=== PATIENT | male | born 1945 | race Caucasian/White ===

== ENCOUNTER 2016-10-28 09:48 | Day surgery (SDC) | payer MEDICARE ==
--- NOTE | 2016-10-03 09:02 | HP ---
DATE OF ADMISSION: 10/28/2016 PREOPERATIVE DIAGNOSIS: Right inguinal hernia. HISTORY OF PRESENT ILLNESS: The patient is a 70-year-old male with a history of right groin discomfort. He has had this bulge in the right groin for about a year and a half now. 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 Particularly has discomfort with leaning over. No nausea or vomiting. No change in bowel habits. He was last seen regarding this hernia last February. Since that time, the pain has become more severe. PAST MEDICAL HISTORY: Hypertension, coronary artery disease, [place], previous lower extremity crush injury. PAST SURGICAL HISTORY: Lap bry, right eye, right leg fasciotomy, cardiac cath with stent, right hand. MEDICATIONS: Hydrochlorothiazide, Ambien, Tenormin, Lipitor, TriCor, Ramipril, aspirin. ALLERGIES: None. PHYSICAL EXAMINATION: GENERAL: Well-developed, well-nourished male in no distress. HEENT: Normocephalic. Sclerae anicteric. Trachea is midline. CHEST: No deformities. ABDOMEN: Soft, nontender, nondistended. Reducible right inguinal hernia noted. No palpable left inguinal hernia. Both testes normal. IMPRESSION: A 70-year-old male with reducible right inguinal hernia. PLAN: Will proceed with operative repair laparoscopically using the da Stef robot for assistance. The risks of bleeding, infection and visceral injury, chronic pain, recurrence and numbness were discussed. The patient understands and wishes to proceed. It was discussed with the patient that there would be a Osullivan present for this procedure on this date.
[2016-10-24 13:22] VITALS: BMI 24.3
[~2016-10-28 09:48] MED LIST: DEXAMETHASONE SOD PHOSPHATE 10 MG/ML 1 ML VIAL IV ONE; HEPARIN SODIUM,PORCINE 5,000 UNIT/ML 1 ML VIAL SQ ONE; HYDROmorphone 1 MG/ML 1 ML SYRINGE IVP PRN; LACTATED RINGERS 1,000 ML IV ONE; LIDOCAINE 1% 20 ML VIAL (10MG/ML) FOR IV START INTRADERMA PRN; ONDANSETRON 4 MG/2 ML VIAL IVP ONE; ceFAZolin 2 GM in SODIUM CHLORIDE 0.9% 100 ML IVPB ONE
[2016-10-28] MEDS: MIDAZOLAM 2 MG/2 ML VIAL IVP ONE ×2 (11:10→11:40)
[2016-10-28] MEDS ORDERED: ePHEDrine 50 MG/ML 1 ML AMP ONE (12:28)
[2016-10-28] MEDS ORDERED: PROPOFOL 10 MG/ML 20 ML VIAL IV ONE (12:28)
[2016-10-28] MEDS ORDERED: fentaNYL (PF) 50 MCG/ML 2 ML AMP ONE (12:28)
[2016-10-28] MEDS ORDERED: SUCCINYLCHOLINE CHLORIDE 100 MG/5 ML SYR IV ONE (12:28)
[2016-10-28] MEDS ORDERED: MIDAZOLAM 2 MG/2 ML VIAL ONE (12:28)
[2016-10-28] MEDS ORDERED: GLYCOPYRROLATE 0.2 MG/ML 2 ML VIAL ONE (12:28)
[2016-10-28] MEDS ORDERED: LIDOCAINE 1% INJ 10MG/ML (20 ML MDV) ONE (12:28)
[2016-10-28] MEDS ORDERED: NEOSTIGMINE 1 MG/ML 10 ML VIAL ONE (12:28)
[2016-10-28] MEDS ORDERED: HYDROmorphone (PF) 1 MG/ML ONE (12:28)
[2016-10-28] MEDS ORDERED: ROCURONIUM BROMIDE 10 MG/ML 10 ML VIAL IV ONE (12:28)
[2016-10-28] MEDS ORDERED: BUPIVACAIN-EPI 0.25%-1:200,000 30 ML VIAL SQ ONE (12:57)
[2016-10-28] MEDS ORDERED: LACTATED RINGERS 1,000 ML IV ONE (14:24)
[2016-10-28] MEDS ORDERED: HYDROcodone/APAP 5-325MG 1 EACH TAB PO PRN (14:37)
[2016-10-28] MEDS ORDERED: NALOXONE 0.4 MG/ML 1 ML VIAL IV PRN (14:37)
--- NOTE | 2016-10-28 14:49 | P.PCN ---
Date of Procedure: 10/28/16 Procedure(s) Performed: PREOPERATIVE DIAGNOSIS: Right inguinal hernia POSTOPERATIVE DIAGNOSIS: Right direct inguinal hernia PROCEDURE: Laparoscopic repair right inguinal hernia with the da Stef robot assistance SURGEON: Fly EBL: Minimal ANESTHESIA: General COMPLICATIONS: None OPERATIVE PROCEDURE: Patient was placed in the operating table in the supine position. A Cowart catheter was placed. He was then placed in lithotomy. The abdomen was prepped and draped in usual sterile fashion. A small curvilinear supraumbilical incision was made. The fascia was retracted anteriorly with Bryan forceps. The Veress needle was inserted. The saline drop test was normal. Insufflation took place to 15 mmHg. A 5 mm trocar was then inserted. 2 additional 8 mm trochars were placed in the right upper quadrant and left upper quadrant under visualization. The initial 5 was switched to a 12 mm trocar at that time under direct visualization. The robotic arms were then brought in and docked into place. The fenestrated bipolar was used in the left arm and the laparoscopic greg was utilized in the right arm. A 30 12 mm scope was used in the up position. The peritoneal cavity was inspected. No left internal hernia was seen. The patient did have available adhesions across the midline and right lower quadrant that was divided using sharp dissection and cautery. Next actually served as our incision site on the peritoneum. Following that careful dissection of the preperitoneal space took place. This took place using both electrocautery and sharp dissection and primarily blunt dissection. The patient's hernia was a direct hernia. Hernia sac was dissected away from the hole within Hesselbach's triangle. The pubic tubercle was identified. Phillip's ligament was dissected. Following the dissection took place laterally. There was no evidence of a indirect hernia. The peritoneum was dissected all the way off of the spermatic cord structures. A small lipoma was identified and reduced. Once we had adequate space the 15 x 10 progrip mesh was advanced into the preperitoneal space and flattened out appropriately to cover all potential hernia sites. No sutures were used. The peritoneal defect was then closed using a locking 2-0 Vicryl stranstrattafix suture. The pneumoperitoneum was then evacuated. The fascia at the 12 mm site was closed using a [id number] 0 Vicryl stitch. The skin of all 3 sites was closed using a 4-0 Monocryl stitch. Steri-Strips and sterile dressings were applied. DISPOSITION: Stable to recovery room
[2016-10-28 15:01] VITALS: TEMP 96.7
[2016-10-28 16:49] VITALS: RESP 18
[2016-10-28] MEDS ORDERED: HYDROcodone/APAP 7.5-325MG 1 EACH TAB PO ONE (17:11)
[2016-10-28 17:46] VITALS: BP 141/86; PULSE 63
== END 2016-10-28 17:56 | disposition home or self-care (01) ==
LOC: OR 09:48
PROVIDERS: ATTEND Surgery
DX: K40.90 Unilateral inguinal hernia, without obstruction or gangrene, not specified as recurrent (principal); D17.6 Benign lipomatous neoplasm of spermatic cord; I10 Essential (primary) hypertension; I25.10 Atherosclerotic heart disease of native coronary artery without angina pectoris; E78.5 Hyperlipidemia, unspecified; I25.2 Old myocardial infarction; Z95.5 Presence of coronary angioplasty implant and graft; Z79.82 Long term (current) use of aspirin; Z79.899 Other long term (current) drug therapy
CPT/HCPCS: 49650; C1781; J2250; J1644; J1100; J2710; J0690; J2405; J2001; J3010; J1170; J0330; J2704

== ENCOUNTER → 2017-02-10 | Outpatient (CLI) | payer MEDICARE ==
--- NOTE | 2017-02-10 08:39 | CT ---
EXAMINATION TYPE: CT lumbar spine wo con DATE OF EXAM: 02/10/2017 7:59 AM COMPARISON: CTA aorta July 18, 2011 HISTORY: Patient having back pain that makes his legs and feet numb CT DLP: 652.3 mGycm Automated exposure control for dose reduction was used. FINDINGS: There are 5 lumbar-type vertebra redemonstrated. There is a transitional L6 vertebra are noted. Lumba r spine redemonstrated satisfactory alignment without evidence of acute fracture or dislocation. Ther e is redemonstration of moderate disc space narrowing with vacuum disc phenomenon and moderate spurri ng at L5 L6 level. Posterior spur disc complex is seen at this level on sagittal images. There are ad ditional posterior disc herniations noted at L3-L4 and L4-L5 level on sagittal image 25 effacing ante rior thecal sac. There is mild multilevel anterior and lateral spurring redemonstrated. Review of axial images shows T11-T12 to appear within normal limits. Axial images at T12-L1 level show mild facet degenerative changes bilaterally on axial image 16, bila teral neural foramina are patent. Spinal canal is preserved. Axial images at L1-L2 level show mild to moderate facet degenerative changes with some effacement of right posterior lateral thecal sac on axial image 26. There is mild broad disc bulge effacing anterio r thecal sac at this level. Bilateral neural foramina remain patent. Axial images at the L2-L3 level show mild facet degenerative changes bilaterally. There is mild broad disc bulge mildly effacing anterior thecal sac on axial image 37. Bilateral neural foramina remain p atent. Axial images at L3-L4 level show moderate facet degenerative changes and ligamentum flavum hypertroph y effacing posterior lateral thecal sac. There is mild to moderate broad disc bulge effacing anterior thecal sac and creating mild spinal canal stenosis on axial image 48. This is more prominent than pr ior study. There is mild bilateral anterior inferior neural foraminal narrowing at this level identif ied. Axial images at L4-L5 level show moderate broad-based posterior disc protrusion effacing anterior the lucía sac. There is mild to moderate facet degenerative changes and ligament flavum hypertrophy effacin g posterior lateral thecal sac on axial image 60. This is more prominent than prior exam. There is mi ld bilateral anterior inferior neural foraminal narrowing at this level identified. Axial images at L5-L6 level show moderate facet degenerative changes bilaterally. There is broad-base d posterior disc protrusion with posterior marginal spurring. There is some effacement of the anterio r thecal sac. There is moderate left greater than right neural foraminal narrowing at this level iden tified. Findings are more prominent than prior study. Axial images at the L6-S1 level show facet arthropathy. Spinal canal is preserved and bilateral neura l foramina are patent. There is fairly moderate to severe calcified atherosclerotic change of the aorta extending into [facility] h vessels redemonstrated. Some ectasia is present near axial image 58. No greater than 3 cm intimal c hanges seen. There is been interval cholecystectomy with cholecystectomy clips now visualized. There is new 1.4 cm low dense exophytic lesion medially in the left kidney upper to mid pole level on axial image 34 suspected simple cyst. Mild emphysematous change is felt present in visualized lung bases. Occasional diverticula are seen in visualized portion of the colon. There is partial visualization of normal-appearing appendix in the anterior right upper pelvis. IMPRESSION: Multilevel degenerative changes in the lumbar spine as detailed above with most prominent findings at L3-L4 through the L5-L6 levels, most prominent spinal canal effacement or mild stenosis is seen L3-L4 level. Progression in findings from 2011 MRI is noted.
== END | disposition home or self-care (01) ==
LOC: RADCTMAIN 07:37
PROVIDERS: ATTEND Physical Medicine & Rehabilitation
DX: M47.816 Spondylosis without myelopathy or radiculopathy, lumbar region (principal); G62.9 Polyneuropathy, unspecified; Z98.890 Other specified postprocedural states
CPT/HCPCS: 72131

== ENCOUNTER → 2017-03-11 | Outpatient (CLI) | payer MEDICARE ==
--- NOTE | 2017-03-11 09:58 | US ---
EXAMINATION TYPE: US kidneys/renal and bladder DATE OF EXAM: 03/11/2017 COMPARISON: CT 02/10/2017 CLINICAL HISTORY: N28.9 Kidney lesion. EXAM MEASUREMENTS: Right Kidney: 12.0 x 5.4 x 5.6 cm Left Kidney: 11.6 x 5.3 x 4.8 cm Right Kidney: No hydronephrosis or masses seen Left Kidney: cyst upper/lateral measuring 1.4 x 1.4 x 1.5 cm. This appears exophytic and simple. Thi s corresponds to the finding on 02/10/2017 CT lumbar spine Bladder: wnl Bilateral Jets seen: Yes IMPRESSION: 1. Simple appearing cyst left upper pole kidney
== END | disposition home or self-care (01) ==
LOC: RADUSWWP 09:05
PROVIDERS: ATTEND Family Medicine
DX: N28.1 Cyst of kidney, acquired (principal)
CPT/HCPCS: 76770

== ENCOUNTER 2017-04-26 22:11 | Emergency (ER) | payer MEDICARE ==
--- NOTE | 2017-04-26 22:36 | ED ---
General Adult HPI - General Chief complaint: Abdominal Pain Stated complaint: Abdominal Pain Time Seen by Provider: 04/26/17 22:13 Source: patient, RN notes reviewed, old records reviewed Mode of arrival: EMS Limitations: physical limitation - History of Present Illness Initial comments: Chief complaint and history of present illness this is a 71-year-old male reports that he had a discomfort more like a gassy feeling in the suprapubic region below the umbilicus. States he feels a may have become overanxious had an anxiety attack on top of that. He does have a history of spinal stenosis with occasional paresthesias to his feet. He does report that yesterday and today worked extremely hard and fell asleep on the sofa. Thinks it may be spinal stenosis related though at this time he is symptom-free. - Related Data Home Medications Medication Instructions Recorded Confirmed Aspirin [Adult Low Dose Aspirin EC] 81 mg PO DAILY 10/24/16 10/24/16 Atenolol [Tenormin] 25 mg PO HS 10/24/16 10/24/16 Atorvastatin [Lipitor] 40 mg PO HS 10/24/16 10/24/16 Hydrochlorothiazide [Hydrodiuril] 12.5 mg PO DAILY 10/24/16 10/24/16 Ramipril 10 mg PO DAILY 10/24/16 10/24/16 Zolpidem [Ambien] 10 mg PO HS 10/24/16 10/24/16 oxyCODONE HCL [Roxicodone] 7.5 mg PO Q4HR PRN 10/24/16 10/24/16 Previous Rx's Medication Instructions Recorded Hydrocodone/Acetaminophen [[place] 1 tab PO Q4HR PRN #30 tab 10/28/16 7.5-325] Allergies Allergy/AdvReac Type Severity Reaction Status Date / Time dust Allergy Unknown Uncoded 04/26/17 22:26 Review of Systems ROS Statement: Those systems with pertinent positive or pertinent negative responses have been documented in the HPI. Review of systems no headache chest pain shortness of breath or GI or problems at this time. He reports having had a bowel movement and felt gassy but otherwise is back to normal distal time. He was anxious and when EMS picked him up they stated that he was shaky. Patient states he was having an anxiety attack. All systems reviewed Past medical problems significant for several MIs years ago. He takes aspirin. Also history of hypertension. Surgeries include gallbladder and right inguinal herniorrhaphy repair with mesh. Family history no cancer denies any ALLERGIES quit smoking 32 years ago. Denies alcohol use ROS Other: All systems not noted in ROS Statement are negative. Past Medical History Past Medical History: Coronary Artery Disease (CAD), Hyperlipidemia, Hypertension, Myocardial Infarction ([place]) Additional Past Medical History / Comment(s): hx migraines, [place] x3 Last Myocardial Infarction Date:: 1993 History of Any Multi-Drug Resistant Organisms: None Reported Past Surgical History: Cholecystectomy, Heart Catheterization, Hernia Repair, Orthopedic Surgery Additional Past Surgical History / Comment(s): rt hand surgery-tip of index finger, angioplasty, rt leg surgery(leg injury), rt eye cataract/lens implant, R inguinal surgery. Past Anesthesia/Blood Transfusion Reactions: No Reported Reaction Past Psychological History: No Psychological Hx Reported Smoking Status: Former smoker Past Alcohol Use History: None Reported Past Drug Use History: None Reported - Past Family History Mother Family Medical History: No Reported History General Exam - General Exam Comments Initial Comments: General: The patient is awake and alert, in no distress, and does not appear acutely ill. Currently free of any complaints. Though at home reports she had a funny sensation to the suprapubic region. He then states he thinks he may have had a panic attack.vital signs temp 98.9 pulse 55 respiratory rate 16 pulse ox 95% room air blood pressure 162/76 Eye: Pupils are equal, round and reactive to light, extra-ocular movements are intact ; there is normal conjunctiva bilaterally. No signs of icterus. Evidence of cataract surgery noted. Ears, nose, mouth and throat: There are moist mucous membranes and no oral lesions. Neck: The neck is supple, there is no tenderness . Cardiovascular: There is a regular rate and rhythm. No murmur, rub or gallop is appreciated. Respiratory: Lungs are clear to auscultation, respirations are non-labored, breath sounds are equal. No wheezes, stridor, rales, or rhonchi. Gastrointestinal: Soft, non-distended, non-tender abdomen without masses or organomegaly noted. There is no rebound or guarding present. No CVA tenderness. Bowel sounds are unremarkable. Back: There is no tenderness to palpation in the midline. There is no obvious deformity. No rashes noted. Musculoskeletal: Normal ROM, no tenderness, There is no pedal edema. There is no calf tenderness or swelling. Sensation intact. Pulses equal bilaterally 2+. Neurological: No neuro deficits Skin is warm and dry and no rashes or lesions are noted. Psychiatric: Patient states he's had one previous panic attack in his life. He states this feels similar to what it happened way back then. Limitations: physical limitation Course Vital Signs 04/26/17 04/26/17 22:14 23:26 Temperature 97.4 F L 98.9 F Pulse Rate 68 55 L Respiratory 18 16 Rate Blood Pressure 174/79 162/76 O2 Sat by Pulse 97 95 Oximetry Medical Decision Making - Medical Decision Making medical decision making; patient'swhite count 7 hemoglobin 14 hematocrit of 43, potassium 4.0 with a BUN of 24 creatinine 0.8 GFR greater than 60. Glucose 181. Amylase lipase within normal limits. Urine clean no signs of infection. X-ray of the abdomen was done and reviewed by radiologist, his impression is nonobstructive nonspecific abdomen. As read by Dr. Estrada - Lab Data Result diagrams: 04/26/17 22:30 04/26/17 22:30 Lab Results 04/26/17 04/26/17 04/26/17 Range/Units 22:30 22:30 22:30 WBC 7.0 (3.8-10.6) k/uL RBC 4.73 (4.30-5.90) m/uL Hgb 14.6 (13.0-17.5) gm/dL Hct 43.1 (39.0-53.0) % MCV 91.1 (80.0-100.0) fL MCH 30.9 (25.0-35.0) pg MCHC 33.9 (31.0-37.0) g/dL RDW 12.9 (11.5-15.5) % Plt Count 250 (150-450) k/uL Neutrophils % 58 % Lymphocytes % 27 % Monocytes % 7 % Eosinophils % 4 % Basophils % 1 % Neutrophils # 4.0 (1.3-7.7) k/uL Lymphocytes # 1.9 (1.0-4.8) k/uL Monocytes # 0.5 (0-1.0) k/uL Eosinophils # 0.3 (0-0.7) k/uL Basophils # 0.1 (0-0.2) k/uL Sodium 140 (137-145) mmol/L Potassium 4.0 (3.5-5.1) mmol/L Chloride 106 (98-107) mmol/L Carbon Dioxide 25 (22-30) mmol/L Anion Gap 9 mmol/L BUN 24 H (9-20) mg/dL Creatinine 0.80 (0.66-1.25) mg/dL Est GFR (MDRD) Af Amer >60 (>60 ml/min/1.73 sqM) Est GFR (MDRD) Non-Af >60 (>60 ml/min/1.73 sqM) Glucose 181 H (74-99) mg/dL Calcium 8.6 (8.4-10.2) mg/dL Total Bilirubin 0.7 (0.2-1.3) mg/dL AST 32 (17-59) U/L ALT 39 (21-72) U/L Alkaline Phosphatase 88 (38-126) U/L Total Protein 5.8 L (6.3-8.2) g/dL Albumin 3.5 (3.5-5.0) g/dL Amylase 103 (30-110) U/L Lipase 183 (23-300) U/L Urine Color Yellow Urine Appearance Clear (Clear) Urine pH 5.5 (5.0-8.0) Ur Specific [place] 1.023 (1.001-1.035) Urine Protein Negative (Negative) Urine Glucose (UA) Negative (Negative) Urine Ketones Negative (Negative) Urine Blood Small H (Negative) Urine Nitrite Negative (Negative) Urine Bilirubin Negative (Negative) Urine Urobilinogen 2.0 (<2.0) mg/dL Ur Leukocyte Esterase Negative (Negative) Urine RBC 3 (0-5) /hpf Urine WBC 1 (0-5) /hpf Urine Mucus Rare H (None) /hpf Disposition Clinical Impression: Abdominal pain of unknown cause Disposition: HOME SELF-CARE Condition: Fair Instructions: Abdominal Pain (ED) Additional Instructions: stay well-hydrated take Tylenol for discomfort follow-up with family physician return emergency room as needed Referrals: Akua Guerrero MD [Primary Care Provider] - 1-2 days Time of Disposition: 00:02
[2017-04-26 22:57] LABS: ALT 39 U/L (21-72); AST 32 U/L (17-59); Alkaline Phosphatase 88 U/L (38-126); Amylase 103 U/L (30-110); Anion Gap 9 mmol/L; Blood Urea Nitrogen 24 mg/dL (9-20); Calcium 8.6 mg/dL (8.4-10.2); Carbon Dioxide 25 mmol/L (22-30); Chloride 106 mmol/L (98-107); Glucose 181 mg/dL (74-99); Non-African American GFR(MDRD) >60 (>60 ml/min/1.73 sqM); Sodium 140 mmol/L (137-145); Total Bilirubin 0.7 mg/dL (0.2-1.3); Total Protein 5.8 g/dL (6.3-8.2)
[2017-04-26 23:01] LABS: Basophils # (A) 0.1 k/uL (0-0.2); Basophils % (A) 1 %; CH 30.3; CHCM 33.4; Eosinophils # (A) 0.3 k/uL (0-0.7); Eosinophils % (A) 4 %; HCT 43.1 % (39.0-53.0); HGB 14.6 gm/dL (13.0-17.5); Luc % (Auto) 3; Lymphocytes # (A) 1.9 k/uL (1.0-4.8); Lymphocytes % (A) 27 %; MCH 30.9 pg (25.0-35.0); MCHC 33.9 g/dL (31.0-37.0); MCV 91.1 fL (80.0-100.0); Monocytes # (A) 0.5 k/uL (0-1.0); Monocytes % (A) 7 %; Neutrophils % (A) 58 %; RBC 4.73 m/uL (4.30-5.90); RDW 12.9 % (11.5-15.5)
[2017-04-26 23:11] LABS: Appearance,Urine Clear (Clear); Bilirubin,Urine Negative (Negative); Glucose,Urine (UA) Negative (Negative); Ketones,Urine Negative (Negative); Leukocyte Esterase,Urine Negative (Negative); Mucus,Urine Rare /hpf; Nitrite,Urine Negative (Negative); PH, Urine 5.5 (5.0-8.0); Particle Count 2254; Protein,Urine Negative (Negative); RBC,Urine 3 /hpf (0-5); Specific Gravity,Urine 1.023 (1.001-1.035); UA Billing (MACRO vs. MICRO) MICRO; WBC,Urine 1 /hpf (0-5)
--- NOTE | 2017-04-26 23:28 | XR ---
EXAM: 3 views of the abdomen. INDICATION: 71-year-old male with abdominal pain. COMPARISON: None. FINDINGS: The bowel gas pattern is nonobstructive and nonspecific. No free peritoneal air demonstrated. Cholecystectomy clips. Arterial calcifications are noted. The soft tissue and osseous structures are otherwise unremarkable. IMPRESSION: 1. Nonobstructive, nonspecific abdomen.
[2017-04-26 23:32] VITALS: BP 162/76; PULSE 55; RESP 16; TEMP 98.9
== END 2017-04-27 00:15 | disposition home or self-care (01) ==
LOC: EC 22:11
DX: R10.9 Unspecified abdominal pain (principal); I25.10 Atherosclerotic heart disease of native coronary artery without angina pectoris; E78.5 Hyperlipidemia, unspecified; I10 Essential (primary) hypertension; Z90.49 Acquired absence of other specified parts of digestive tract; Z87.891 Personal history of nicotine dependence; Z91.09 Other allergy status, other than to drugs and biological substances; Z98.890 Other specified postprocedural states; Z79.82 Long term (current) use of aspirin; Z79.899 Other long term (current) drug therapy
CPT/HCPCS: 36415; 74020; 80053; 81001; 82150; 83690; 85025; 87086; 99285

== ENCOUNTER → 2017-10-28 | Outpatient (CLI) | payer MEDICARE ==
[2017-10-28 19:01] LABS: Basophils # (A) 0.1 k/uL (0-0.2); Basophils % (A) 1 %; Eosinophils # (A) 0.3 k/uL (0-0.7); Eosinophils % (A) 4 %; HCT 48.1 % (39.0-53.0); HGB 15.9 gm/dL (13.0-17.5); Lymphocytes # (A) 1.8 k/uL (1.0-4.8); Lymphocytes % (A) 26 %; Mean Platelet Volume 7.9; Monocytes # (A) 0.6 k/uL (0-1.0); Monocytes % (A) 8 %; Neutrophils # (A) 4.1 k/uL (1.3-7.7); Neutrophils % (A) 58 %; Platelet Count 269 k/uL (150-450); RBC 5.29 m/uL (4.30-5.90); RDW 14.3 % (11.5-15.5)
[2017-10-28 19:03] LABS: ALT 43 U/L (21-72); AST 33 U/L (17-59); Albumin 4.1 g/dL (3.5-5.0); Alkaline Phosphatase 91 U/L (38-126); Anion Gap 11 mmol/L; Blood Urea Nitrogen 19 mg/dL (9-20); Calcium 9.9 mg/dL (8.4-10.2); Carbon Dioxide 30 mmol/L (22-30); Chloride 99 mmol/L (98-107); Cholesterol 138 mg/dL (<200); Glucose 89 mg/dL (74-99); HDL Cholesterol 44 mg/dL (40-60); LDL Cholesterol,Calculated 76 mg/dL (0-99); Potassium 4.4 mmol/L (3.5-5.1); Sodium 140 mmol/L (137-145); Total Bilirubin 1.2 mg/dL (0.2-1.3); Total Protein 6.8 g/dL (6.3-8.2); Triglycerides 90 mg/dL (<150)
[2017-10-28 19:16] LABS: T4, Free (Free Thyroxine) 1.03 ng/dL (0.78-2.19)
== END | disposition home or self-care (01) ==
LOC: MMGSC 10:53
PROVIDERS: ATTEND Family Medicine
DX: E78.5 Hyperlipidemia, unspecified (principal); I25.10 Atherosclerotic heart disease of native coronary artery without angina pectoris; I10 Essential (primary) hypertension
CPT/HCPCS: 36415; 80053; 80061; 84439; 84443; 85025